=== PATIENT | male | born 1970 | race Caucasian/White ===

== ENCOUNTER 2019-04-01 10:13 | Day surgery (SDC) | payer BC, OTHER ==
[~2019-04-01] VITALS: Ht 170.2 cm; Wt 83.9 kg
[2019-04-01] MEDS ORDERED: ODEFSEY (11:29)
[2019-04-01] MEDS ORDERED: SUMATRIPTAN (11:29)
[2019-04-01] MEDS ORDERED: LOPERAMIDE (11:29)
[2019-04-01] MEDS ORDERED: LORATADINE (11:29)
[2019-04-01] MEDS ORDERED: MOTRIN (11:29)
[2019-04-01] MEDS ORDERED: HYDROCODONE/APAP (11:29)
[2019-04-01] MEDS ORDERED: aspirin (11:29)
[2019-04-01 11:32] VITALS: Ht 170.2 cm; Wt 83.9 kg
[2019-04-01 11:33] VITALS: BP 112/76; PULSE 73; RESP 20
[2019-04-01] MEDS ORDERED: LIDOCAINE 4% SOLUTION 50 ML BTL ONE (11:59)
--- NOTE | 2019-04-01 12:33 | PREAC ---
Date/Time of Note Date/Time of Note DATE: 04/01/19 TIME: 12:31 Anesthesia Eval and Record Evaluation Time Pre-Procedure Interview DATE: 04/01/19 TIME: 12:31 Age 48 Sex male NPO: 8 hrs Preoperative diagnosis Abdominal pain, Diarrhea Planned procedure EGD, Colonoscopy Past Medical History Past Medical History: Includes Pulm: Sleep Apnea GI: Morbid obesity Infection(s): HIV Surgery & Anesthesia Issues No known issue Meds Anticoagulation: Yes Beta Jessi within 24 hr: No Reason Beta Jessi not given: Pt. not on B-Jessi Reported Medications [Sumatriptan] No Conflict Check 04/01/19 [Odefsey] No Conflict Check 04/01/19 [Loratadine] No Conflict Check 04/01/19 [Loperamide] No Conflict Check 04/01/19 [Motrin] No Conflict Check 04/01/19 [Hydrocodone/Apap] No Conflict Check 04/01/19 [aspirin] No Conflict Check 04/01/19 Meds reviewed: Yes Allergies Coded Allergies: No Known Allergy (Unverified , 04/01/19) Allergies Reviewed: Yes Labs/Studies Labs Reviewed: Reviewed by anesthesiologist test: N/A Studies: ECG Pre-procedure Exam Last vitals Vital Signs Date Temp Pulse Resp B/P (MAP) Pulse Ox O2 O2 Flow FiO2 Time Delivery Rate 04/01/19 97.1 73 20 112/76 99 Room Air 11:33 (88) Airway: Adequate mouth opening, Adequate thyromental dist Mallampati: Mallampati III Teeth: Normal Lung: Normal Heart: Normal ASA Physical Status ASA physical status: 3 Emergency: None Planned Anesthetic General/MAC: MAC Planned Pain Management Parenteral pain med Pre-operative Attestations Prior to commencing anesthesia and surgery, the patient was re-evaluated, there was verification of: *The patient's identity *The results of appropriate recent lab work and preoperative vital signs *The above evaluation not changing prior to induction *Anesthetic plan, risk benefits, alternative and complications discussed with patient/family; questions answered; patient/family understands, accepts and wishes to proceed. KULWANT ODOM MD Apr 01, 2019 12:33
--- NOTE | 2019-04-01 12:34 | PAC ---
Date/Time of Note Date/Time of Note DATE: 04/01/19 TIME: 12:33 Post-Anesthesia Notes Post-Anesthesia Note Last documented vital signs Vital Signs Date Temp Pulse Resp B/P (MAP) Pulse Ox O2 O2 Flow FiO2 Time Delivery Rate 04/01/19 97.1 73 20 112/76 99 Room Air 11:33 (88) Activity: WNL Respiratory function: WNL Cardiovascular function: WNL Mental status: Baseline Pain reasonably controlled: Yes Hydration appropriate: Yes Nausea/Vomiting absent: Yes Comments BP:112/56, P:78, Spo2:100%, T:98,8 KULWANT ODOM MD Apr 01, 2019 12:34
[2019-04-01] MEDS ORDERED: FENTAnyl 50 MCG/ML VIAL ONE (13:50)
[2019-04-01] MEDS ORDERED: MIDAZOLAM 1 MG/ML 2 ML INJ ONE ×3 (13:50)
== END 2019-04-01 13:37 | disposition home or self-care (01) ==
LOC: GIL 10:13
PROVIDERS: ATTEND Internal Medicine Gastroenterology
DX: Z12.11 Encounter for screening for malignant neoplasm of colon (principal); D12.5 Benign neoplasm of sigmoid colon; K64.4 Residual hemorrhoidal skin tags; K29.50 Unspecified chronic gastritis without bleeding
CPT/HCPCS: 43239; 45385; 88305; 88312; J2250; J3010; Z7610

== ENCOUNTER 2019-04-21 09:44 | Emergency (ER) | payer OTHER ==
[~2019-04-21] VITALS: Ht 167.6 cm; Wt 85.5 kg
[~2019-04-21 09:44] MED LIST: ASPI-817 PO; EMTR1TAB17 PO; HYDR-3980 PO; HYDROCODONE/APAP; IBUP-1542 PO; IBUP-1545 PO; LOPE-123 PO; LOPERAMIDE; LORA10TA3 PO; LORATADINE; MOTRIN; ODEFSEY; SUMA25TA3 PO; SUMATRIPTAN; aspirin
[2019-04-21 09:56] VITALS: Ht 167.6 cm; Wt 85.5 kg
[2019-04-21] MEDS ORDERED: KETOROLAC 30 MG INJ IV STA (10:43)
--- NOTE | 2019-04-21 10:45 | ERD ---
ER Documentation Chief Complaint Chief Complaint rigth side chest tingling and palpitations x2 mths, worse now HPI Patient is a 48-year-old male with HIV who presents with chest pain. He said that he has right-sided chest pain for the past 2 months. He said that he had shortness of breath associated with it. It was worse yesterday. The pain is been constant. He feels down his right arm and describes it as a sharp 7 out of 10 pain. Better with lying down. He said that he has never felt this before. ROS All systems reviewed and are negative except as per history of present illness. Medications Home Meds Active Scripts Ibuprofen* (Motrin*) 600 Mg Tab, 600 MG PO Q6H PRN for PAIN AND OR ELEVATED TEMP, #30 TAB Prov:MINAL TUBBS MD 04/21/19 Reported Medications Sumatriptan Succinate* (Sumatriptan Succinate*) Unknown Strength Tablet, 1 TAB PO NEEDED PRN for MIGRAINE HEADACHE, TAB May repeat after 2 hours if needed; MAX 200 mg/24 hours 04/21/19 Hydrocodone/Acetaminophen (Maybee 10-325 Tablet) Unknown Strength Tablet, 1 TAB PO NEEDED, TAB 04/21/19 Loperamide Hcl* (Loperamide Hcl*) Unknown Strength Cap, 1 CAP PO NEEDED, CAP 04/21/19 Ibuprofen* (Ibuprofen*) 800 Mg Tab, 800 MG PO Q6H PRN for PAIN, TAB 04/21/19 Loratadine* (Loratadine*) 10 Mg Tablet, 10 MG PO DAILY, #30 TAB 04/21/19 Aspirin* (Aspirin* EC) 81 Mg Tablet.dr, 81 MG PO DAILY, TAB 04/21/19 Emtricitab/Rilpiviri/Tenof Ala (Odefsey Tablet) 1 Each Tablet, 1 EACH PO DAILY, TAB 04/21/19 Discontinued Reported Medications [Sumatriptan] No Conflict Check 04/01/19 [Odefsey] No Conflict Check 04/01/19 [Loratadine] No Conflict Check 04/01/19 [Loperamide] No Conflict Check 04/01/19 [Motrin] No Conflict Check 04/01/19 [Hydrocodone/Apap] No Conflict Check 04/01/19 [aspirin] No Conflict Check 04/01/19 Allergies Allergies: Coded Allergies: No Known Allergy (Unverified , 04/21/19) PMhx/Soc History of Surgery: No (BACK, EYE, APPENDECTOMY) Anesthesia Reaction: No Hx Neurological Disorder: No Hx Respiratory Disorders: No Hx Cardiac Disorders: No Hx Psychiatric Problems: No Hx Miscellaneous Medical Probl: Yes (HIV) Hx Alcohol Use: No Hx Substance Use: No Hx Tobacco Use: No Smoking Status: Never smoker FmHx Family History: No diabetes Physical Exam Vitals Vital Signs Date Temp Pulse Resp B/P (MAP) Pulse Ox O2 O2 Flow FiO2 Time Delivery Rate 04/21/19 64 20 106/72 99 Room Air 12:41 (83) 04/21/19 Nasal 2 10:26 Cannula 04/21/19 98.5 76 18 115/63 95 09:56 (80) Physical Exam Const: No acute distress Head: Atraumatic Eyes: Normal Conjunctiva ENT: Normal External Ears, Nose and Mouth. Neck: Full range of motion. No meningismus. Resp: Clear to auscultation bilaterally Cardio: Regular rate and rhythm, no murmurs, right-sided chest wall pain with palpation Abd: Soft, non tender, non distended. Normal bowel sounds Skin: No petechiae or rashes Back: No midline or flank tenderness Ext: No cyanosis, or edema Neur: Awake and alert Psych: Normal Mood and Affect Result Diagram: 04/21/19 1015 04/21/19 1015 Results 24 hrs Laboratory Tests Test 04/21/19 10:15 White Blood Count 6.0 10^3/ul Red Blood Count 5.47 10^6/ul Hemoglobin 16.5 g/dl Hematocrit 48.0 % Mean Corpuscular Volume 87.8 fl Mean Corpuscular Hemoglobin 30.2 pg Mean Corpuscular Hemoglobin Concent 34.4 g/dl Red Cell Distribution Width 11.9 % Platelet Count 244 10^3/UL Mean Platelet Volume 11.4 fl Immature Granulocytes % 0.200 % Neutrophils % 65.1 % Lymphocytes % 25.1 % Monocytes % 7.7 % Eosinophils % 1.2 % Basophils % 0.7 % Nucleated Red Blood Cells % 0.0 /100WBC Immature Granulocytes # 0.010 10^3/ul Neutrophils # 3.9 10^3/ul Lymphocytes # 1.5 10^3/ul Monocytes # 0.5 10^3/ul Eosinophils # 0.1 10^3/ul Basophils # 0.0 10^3/ul Nucleated Red Blood Cells # 0.0 10^3/ul Sodium Level 142 mmol/L Potassium Level 3.9 mmol/L Chloride Level 107 mmol/L Carbon Dioxide Level 24 mmol/L Anion Gap 11 Blood Urea Nitrogen 15 mg/dl Creatinine 0.95 mg/dl Est Glomerular Filtrat Rate mL/min > 60 mL/min Glucose Level 150 mg/dl Calcium Level 9.2 mg/dl Troponin I < 0.012 ng/ml Current Medications Medications Dose Sig/Karan Start Time Status Last (Trade) Ordered Route PRN Stop Time Admin Dose Reason Admin Ketorolac 30 mg ONCE STAT 04/21/19 DC 04/21/19 Tromethamine IV 10:43 11:30 (Toradol) 04/21/19 10:44 Procedures/MDM EKG read by me: Rate/Rhythm: Regular rate and rhythm at a rate of 72 Intervals: Normal Impression: No evidence of ischemia or arrhythmia Chest x-ray negative per radiology. Patient is a 48-year-old male who presents with chest pain for 2 months. Laboratory studies are normal. EKG shows no signs of ischemia. Chest x-ray was negative for pneumonia or pneumothorax. At this point I doubt acute corner syndrome, pneumonia, pneumothorax, pulmonary embolism, or aortic dissection. The patient's PERC score is 0. He will be discharged with a prescription for ibuprofen but will need to follow-up closely with a primary doctor for reevaluation. He can return sooner for any worsening symptoms. PERC Rule for Pulmonary Embolism from [email or web address] on 04/21/2019 All calculations should be rechecked by clinician prior to use RESULT SUMMARY: 0 criteria No need for further workup, as <2% chance of PE. If no criteria are positive and clinicians pre-test probability is <15%, PERC Rule criteria are satisfied. INPUTS: Age ?50 > 0 = No HR ?100 > 0 = No Martin? on room air > 0 = No Unilateral leg swelling > 0 = No Hemoptysis > 0 = No Recent surgery or trauma > 0 = No Prior PE or DVT > 0 = No Hormone use > 0 = No Departure Diagnosis: Primary Impression: Chest pain Chest pain type: unspecified Qualified Codes: R07.9 - Chest pain, unspecified Additional Impression: Palpitations Condition: Fair Patient Instructions: Chest Pain, Uncertain Cause, Palpitations Additional Instructions: Alison pozo doctor MAANA y mendoza dewey GUY PARA DENTRO DE 1-2 CELAYA.Dgale a la secretaria que nosotros le instruimos hacer esta guy.Avise o llame si sneed condicin se empeora antes de la guy. Regresa aqui si peor o no mejor. MINAL TUBBS MD Apr 21, 2019 10:45
[2019-04-21 12:41] VITALS: BP 106/72; PULSE 64; RESP 20
== END 2019-04-21 12:42 | disposition home or self-care (01) ==
LOC: E/R 09:44
DX: R07.89 Other chest pain (principal); R00.2 Palpitations; Z21 Asymptomatic human immunodeficiency virus [HIV] infection status
CPT/HCPCS: 71045; 80048; 84484; 85025; 93005; J1885; 36415; 96374